=== PATIENT | male | born 1990 | race Caucasian/White ===

== ENCOUNTER 2018-04-14 16:10 | Emergency (ER) | payer BC ==
[2018-04-14 16:16] VITALS: BP 133/116
[2018-04-14] MEDS ORDERED: FEXO-67 PO (16:20)
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
[2018-04-14] MEDS ORDERED: CEPH500T7 PO (16:39)
--- NOTE | 2018-04-14 17:23 | RADIOLOGY IMAGING REPORT ---
FACILITY: PATIENT NAME: Ryan Houston : 1990 MR: [id number] V: [id number] EXAM DATE: ORDERING PHYSICIAN: MAURILIO AMOS TECHNOLOGIST: Location: [facility] Patient: Ryan Houston : 1990 Visit/Account:[id number] Date of Sevice: 04/14/2018 HAND LIMITED RIGHT Indication: Laceration to the webbing in between the second and third digit. Evaluate for foreign bod y. Comparison: None Available. Findings: AP and lateral view the right hand. No fracture or dislocation. No bony lesion or periosteal abnormal ity. There is a laceration between the webbing of the second and third digit. No discrete radiopaque foreign body. Subcutaneous air is present. Soft tissues are otherwise unremarkable. Impression: 1.No acute osseous abnormality of the right hand 2. Laceration to the webbing between the second and third digit. No discrete indication of radiopaque foreign body. Report Dictated By: Dick Cruz at 04/14/2018 5:16 PM Report E-Signed By: Dick Cruz at 04/14/2018 5:19 PM WSN:[id number]
== END 2018-04-14 17:23 | disposition home or self-care (01) ==
LOC: ER 16:16
DX: S61.412A Laceration without foreign body of left hand, initial encounter (principal)
CPT/HCPCS: 99283